=== PATIENT | female | born 2000 | race Caucasian/White ===

== ENCOUNTER 2022-06-09 22:41 | Emergency (ER) | payer BC, SELFPAY ==
[2022-06-09 22:50] VITALS: BP 133/98; PULSE 88; RESP 16; TEMP 36.6; O2SAT 98; BMI 39.9
--- NOTE | 2022-06-09 23:12 | CRLHL7_ITS ---
For Patients: As a result of the Century Cures Act, medical imaging exams and procedure reports are released immediately into your electronic medical record. You may view this report before your referring provider. If you have questions, please contact your health care provider. Indication: Right lower quadrant abdominal pain. Technique: Multiple axial images were obtained from the diaphragm through symphysis pubis without contrast. Sagittal and coronal reformatted images were obtained. Please note that all CT scans at this facility use dose modulation, iterative reconstruction, and/or weight-based dosing when appropriate to reduce radiation dose to as low as reasonably achievable. Comparison: None. Findings: The visualized portion of the lung bases are clear. The liver, pancreas, gallbladder and adrenal glands are unremarkable. There is a 3.2 cm low density in the superior aspect of the spleen medially measuring approximately 28 Hounsfield units. There is no stone seen in the kidneys or ureters. There is no evidence of a bowel obstruction. The appendix is unremarkable. There are prominent lymph nodes in the right lower quadrant and in the small mesenteric which could be secondary to a mesenteric adenitis. There is no retroperitoneal adenopathy. The abdominal aorta is normal in caliber. There is no free fluid in the abdomen or pelvis. There is a menstrual cup noted in the vaginal vault. Impression 3.2 cm low-density structure in the superior aspect of the spleen medially which is not fully characterized on this study. Recommend followup CT scan with contrast on an outpatient basis to further evaluate this. Prominent lymph nodes in the right lower quadrant small was introduced to be secondary to mesenteric adenitis. Please note that all CT scans at this facility use dose modulation, iterative reconstruction, and/or weight-based dosing when appropriate to reduce radiation dose to as low as reasonably achievable. Dictated by Son Pal MD @ 06/10/2022 12:52:13 AM (Electronically Signed)
--- NOTE | 2022-06-09 23:13 | ED_ITS ---
HPI - Abdominal Pain General Chief Complaint: Abdominal Pain Stated Complaint: Right abdominal pain Time Seen by Provider: 06/09/22 22:59 History of Present Illness HPI narrative: This 22-year-old female comes in with right-sided abdominal pain. This began about fiber 6 days ago and 5 days ago she went to a different facility where she had a CT scan and labs done. These returned with normal findings. She took Tylenol and ibuprofen for a few days in her pain completely resolved. This same pain came back yesterday and is not relieved by any [id number] medicines. She states that the pain is constant. She reports that it seems worse with movement. She does not report any dysuria or altered bowel function. She has not had any fevers. She states that food does not make her symptoms better or worse. Related Data Home Medications Medication Instructions Recorded Confirmed venlafaxine 75 mg capsule,extended mg PO 06/09/22 release 24 hr Allergies Allergy/AdvReac Type Severity Reaction Status Date / Time amoxicillin Allergy Verified 06/09/22 22:53 Review of Systems Status of ROS Reports: 10 or more systems reviewed and unremarkable except as noted in History and below Narrative Constitutional: No fevers, no weight gain or loss. Eyes: No discharge. No vision changes. HENT: No congestion, no sore throat, no ear pain. Cardiovascular: No chest pain, no palpitations. Respiratory: No shortness of breath, no wheezes, no cough. Gastrointestinal: No vomiting, no diarrhea. Right sided abdominal pain and some occasions of right flank pain. Genitourinary: No dysuria, no hematuria. Musculoskeletal: Normal range of motion. Skin: No rashes, no pruritis. Neurological: No dizziness, weakness, sensory change, speech change. Endo/Heme/Allergies: No bruising or bleeding. No polydipsia. Pysch: no suicidality, no anxiety, no insomnia. All other systems reviewed and are negative. PFSH PFS Social History Smoking Status: Never smoker Do you use any of these nicotine containing products: None How often do you have a drink containing alcohol: never AUDIT-C Alcohol total score: 0 Non-prescribed substance use: denies use Exam Narrative: Exam Narrative: Constitutional: Well-developed, well-nourished, no acute distress. HEENT: Normocephalic, atraumatic. Neck: Normal range of motion. Nontender. Supple. Heart: Regular. No murmurs. Normal rate. Intact distal pulses. Lungs: Clear to auscultation. No chest discomfort. No wheezes, rhonchi, or rales. Abdomen: Normal bowel sounds. Tenderness on the right lower quadrant with no obvious rebound tenderness. Genitalia: Deferred. Back: No midline tenderness. Normal range of motion. Extremities: Normal range of motion. No injury. Skin: Intact. No rash. Warm. No erythema or pallor. Neurologic: No altered sensation. No weakness. Alert and oriented. Psychiatric: No suicidality. No anxiety or depression. No insomnia. Nursing notes and vitals signs are reviewed. Const: Vital Signs, click to edit/add: Vital Signs - 24 hr 06/09/22 22:50 Temperature 97.8 F Pulse Rate [Right Pulse Oximeter] 88 Respiratory Rate 16 Blood Pressure [Ri ght Upper Arm] 133/98 H Pulse Oximetry 98 Oxygen Delivery Me thod Room Air Course Vital Signs Vital signs: Initial Vital Signs Temperature 97.8 F 06/09/22 22:50 Temperature Source Temporal Artery Scan 06/09/22 22:50 Pulse Rate 88 06/09/22 22:50 Pulse Rhythm 06/09/22 22:50 Respiratory Rate 16 06/09/22 22:50 Blood Pressure 133/98 H 06/09/22 22:50 Blood Pressure Mean 109 06/09/22 22:50 Blood Pressure Position Sitting 06/09/22 22:50 Pulse Oximetry 98 06/09/22 22:50 Oxygen Delivery Method 06/09/22 22:50 Vital Signs Temperature 97.8 F 06/09/22 22:50 Pulse Rate 88 06/09/22 22:50 Respiratory Rate 16 06/09/22 22:50 Blood Pressure 133/98 H 06/09/22 22:50 Pulse Oximetry 98 06/09/22 22:50 Oxygen Delivery Method 06/09/22 22:50 Temperature 97.8 F 06/09/22 22:50 Pulse Rate 88 06/09/22 22:50 Respiratory Rate 16 06/09/22 22:50 Blood Pressure 133/98 H 06/09/22 22:50 Pulse Oximetry 98 06/09/22 22:50 Oxygen Delivery Method 06/09/22 22:50 MDM - Abdominal Pain MDM Narrative Medical decision making narrative: This patient comes in with abdominal pain in the right lower quadrant and right abdomen as described above. She did have CT imaging 5 days ago with normal results. She states that the pain resolved and returned with a vengeance yesterday. She does have family history of kidney stones and states that she thinks she has also had a history of ovarian cysts. A CT scan without contrast was completed today. I did discuss labs with the patient also and in a process of shared decision making these were declined for now. CT scan results returned with no obvious cause for the patient's pain. There are some prominent lymph nodes in the right lower quadrant secondary to mesenteric adenitis. The patient received prescriptions for some tablets of Toradol and Baldwin for symptomatic relief. She is okay to be discharged home. Imaging Data CT scan - abdomen: Radiologist's impression: The visualized portion of the lung bases are clear. The liver, pancreas, gallbladder and adrenal glands are unremarkable. There is a 3.2 cm low density in the superior aspect of the spleen medially measuring approximately 28 Hounsfield units. There is no stone seen in the kidneys or ureters. There is no evidence of a bowel obstruction. The appendix is unremarkable. There are prominent lymph nodes in the right lower quadrant and in the small mesenteric which could be secondary to a mesenteric adenitis. There is no retroperitoneal adenopathy. The abdominal aorta is normal in caliber. There is no free fluid in the abdomen or pelvis. There is a menstrual cup noted in the vaginal vault. Impression 3.2 cm low-density structure in the superior aspect of the spleen medially which is not fully characterized on this study. Recommend followup CT scan with contrast on an outpatient basis to further evaluate this. Prominent lymph nodes in the right lower quadrant small was introduced to be secondary to mesenteric adenitis. Discharge Plan Discharge Clinical Impression: Abdominal pain Patient Disposition: Home, Self-Care Condition: Stable Instructions: Abdominal Pain (ED) Additional Instructions: Take medications as prescribed. Follow up with MD or return if worsening symptoms happen. Prescriptions: No Action venlafaxine 75 mg capsule,extended release 24hr PO Follow Up/Referrals: Provider,Not a Local [Primary Care Provider] - Stand Alone Forms: [employer] Info Instructions
[2022-06-10 01:08] VITALS: BP 135/72; PULSE 82; RESP 18; O2SAT 99
== END 2022-06-10 01:09 | disposition home or self-care (01) ==
PROVIDERS: Emergency Provider Emergency Medicine Emergency Medical Services
DX: R10.31 Right lower quadrant pain (principal)
CPT/HCPCS: 74176; 99284